=== PATIENT | female | born 1955 | race Caucasian/White ===

== ENCOUNTER 2016-10-26 11:52 | Emergency (ER) | payer BC ==
[~2016-10-26] VITALS: Wt 70.0 kg
[2016-10-26] MEDS ORDERED: SOD CHLORIDE 0.9% 500 ML IV STA (13:47)
[2016-10-26] MEDS ORDERED: CARBIDOPA/LEVODOPA (10/100) TAB PO ONE (14:00)
--- NOTE | 2016-10-26 14:29 | ERD ---
ER Documentation Chief Complaint Date/Time DATE: 10/26/16 TIME: 14:22 Chief Complaint BILATERAL LEG SWELLING HPI 61-year-old woman brought in by mutual fund sales agent for evaluation of 2 weeks of bilateral peripheral edema. This seems to be of new onset. Patient is wheelchair-bound and is in a sitting or laying position for most of the day. Initially I was told she has a history of Parkinson's disease but I later found out her "diagnosed" her with Parkinson's about 8 years ago when she developed upper extremity tremors, gait ataxia, generalized weakness. He states 3 years ago she developed difficulty speaking. Patient moved here 17 years ago from [place] and last visited there about 14 years ago. She does not see a doctor on a regular basis, and minor issues are usually managed in different emergency departments around [facility]. ROS All systems reviewed and are negative except as per history of present illness. Medications Home Meds Active Scripts Albendazole* (Albenza*) 200 Mg Tab, 400 MG PO BID, #28 TAB Prov:KIRTI ROBERSON MD 10/26/16 Allergies Allergies: Coded Allergies: No Known Allergy (Unverified , 10/26/16) PMhx/Soc Unknown History of Surgery: No Anesthesia Reaction: No Hx Neurological Disorder: No Hx Respiratory Disorders: No Hx Cardiac Disorders: No Hx Psychiatric Problems: No Hx Miscellaneous Medical Probl: Yes (PARKINSONS) Hx Alcohol Use: No Hx Substance Use: No Hx Tobacco Use: No Smoking Status: Never smoker FmHx Family History: No diabetes Physical Exam Vitals Vital Signs Date Time Temp Pulse Resp B/P Pulse Ox O2 Delivery O2 Flow Rate FiO2 10/26/16 17:40 64 20 112/68 98 Room Air 10/26/16 17:00 72 20 118/77 98 Room Air 10/26/16 16:50 69 20 121/61 98 Room Air 10/26/16 12:06 98.0 78 18 126/79 99 Physical Exam GENERAL: Well-developed, well-nourished, well-hydrated, in no apparent distress , looks nontoxic in appearance HEENT: Moist mucous membranes, pink conjunctiva, no cervical spine tenderness or step-off deformities, no goiter, no jaundice or icterus, extraocular movements intact without pain. No submandibular induration, and no pharyngeal erythema NEURO: Eyes open, patient follows commands, nonverbal, hyperreflexia in all extremities, no focal deficits or facial asymmetry, pupils equal round reactive to light, rigidity of her lower extremities bilaterally and choreoathetosis to the upper extremities bilaterally. She has severe gait ataxia. Of note I do not appreciate masklike facies, lead pipe rigidity, or shuffling gait CARDIAC: Regular rate and rhythm, no murmurs rubs or gallops LUNGS: Clear bilaterally no wheezing crackles or stridor ABDOMEN: Soft nontender, no guarding, no rigidity, no rebound, no psoas sign no obturator sign. Normoactive bowel sounds SKIN: Warm and dry to touch, no abrasions, contusions, or hematomas, no lacerations, no ecchymosis, no target lesions, and without ulcers EXTREMITIES: No clubbing cyanosis, 2+ pitting edema in the lower extremities bilaterally, calves are bilaterally symmetrical, no Homans sign, no popliteal cord sign. Distal pulses equal and bilateral PSYCH: Normal affect without agitation or irritability Result Diagram: 10/26/16 1415 10/26/16 1415 Results 24 hrs Laboratory Tests Test 10/26/16 14:15 White Blood Count 7.410^3/ul Red Blood Count 4.0910^6/ul Hemoglobin 12.2g/dl Hematocrit 37.7% Mean Corpuscular Volume 92.2fl Mean Corpuscular Hemoglobin 29.8pg Mean Corpuscular Hemoglobin Concent 32.4g/dl Red Cell Distribution Width 14.3% Platelet Count 31549^3/UL Mean Platelet Volume 9.2fl Neutrophils % 55.2% Lymphocytes % 33.4% Monocytes % 8.7% Eosinophils % 2.3% Basophils % 0.1% Nucleated Red Blood Cells % 0.0/100WBC Neutrophils # 4.110^3/ul Lymphocytes # 2.510^3/ul Monocytes # 0.610^3/ul Eosinophils # 0.210^3/ul Basophils # 0.010^3/ul Nucleated Red Blood Cells # 0.010^3/ul Sodium Level 148mmol/L Potassium Level 3.7mmol/L Chloride Level 106mmol/L Carbon Dioxide Level 28mmol/L Anion Gap 18 Blood Urea Nitrogen 13mg/dl Creatinine 0.55mg/dl Glucose Level 85mg/dl Calcium Level 8.7mg/dl Total Bilirubin 0.4mg/dl Direct Bilirubin 0.00mg/dl Indirect Bilirubin 0.4mg/dl Aspartate Amino Transf (AST/SGOT) 24IU/L Alanine Aminotransferase (ALT/SGPT) 37IU/L Alkaline Phosphatase 97IU/L Troponin I < 0.012ng/ml B-Type Natriuretic Peptide 100PG/ML Total Protein 8.1g/dl Albumin 4.1g/dl Globulin 4.00g/dl Albumin/Globulin Ratio 1.02 Lipase 59U/L Current Medications Medications (Trade) Dose Ordered Sig/Raquel Route PRN Reason Start Time Stop Time Status Last Admin Dose Admin Sodium Chloride (NS) 500 ml @ 500 mls/hr Q1H STAT IV 10/26/16 13:47 10/26/16 14:46 DC 10/26/16 14:20 Carbidopa/ Levodopa 1 tab 1 tab ONCE ONCE PO 10/26/16 14:00 10/26/16 14:01 DC 10/26/16 14:00 Sodium Chloride (NS) 1,000 ml @ 1,000 mls/hr Q1H ONCE IV 10/26/16 16:00 10/26/16 16:59 DC 10/26/16 16:44 Midazolam HCl (Versed) 2 mg ONCE ONCE IV 10/26/16 17:00 10/26/16 17:01 DC 10/26/16 16:47 Albendazole (Albenza) 400 mg ONCE ONCE PO 10/26/16 18:30 10/26/16 18:31 Procedures/MDM IV line was established patient was placed on alternative dispute resolution mediator rhythm strip revealed a sinus rhythm at about 70 bpm with upright P and T waves. Patient was afebrile. EKG performed, read by me revealed a normal sinus rhythm at 66 bpm, first- degree atrial ventricular block at 206 ms, normal axis, narrow QRS complex, no concerning ST elevations or depressions noted. Prior to CT imaging she received midazolam [address] scan of the brain was performed that was negative for acute bleed mass or shift. 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 One AP view of the chest performed, read by me reveals no acute infiltrates, normal mediastinum, sharp costophrenic and cardiac borders, no air under the diaphragm. Otherwise unremarkable chest x-ray. Color Doppler ultrasound of the bilateral lower extremities was performed, all veins were compressible, no DVT noted. CBC and electrolytes are normal, liver function tests were normal, troponin was negative, urine analysis is pending I will follow-up. I administered albendazole 400 mg p.o. for neurocysticercosis treatment. Patient's mental status is back to baseline although she has multiple concerning neurologic findings none of which are acute. 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 Furthermore, Parkinson's disease has not yet been ruled out and may still be on the differential. I recommend 2 weeks treatment with albendazole which will likely improve some of her symptoms and follow-up with outpatient mat machine tender for continued medical management, MRI, and outpatient neurology referral. Differential diagnoses considered, included but not limited to acute coronary syndrome, pulmonary embolism, aortic dissection, abdominal aortic aneurysm, sepsis, stroke, meningitis, encephalitis, pneumonia, appendicitis, cholecystitis , bowel obstruction, pyelonephritis, nephrolithiasis, cystitis, as well as metabolic, hematologic, and electrolyte abnormalities. As well as abscess, cellulitis, fractures, and dislocations. Patient feels much better at this time, and vital signs are normal, symptoms have improved. I did give strict instructions to return to the ED if symptoms continue or worsen, patient will otherwise follow-up with primary care physician. Patient understood instructions and agreed to plan. Disclaimer: Inadvertent spelling and grammatical errors are likely due to EHR/ dictation software use and do not reflect on the overall quality of patient care. Also, please note that the electronic time recorded on this note does not necessarily reflect the actual time of the patient encounter. Departure Diagnosis: Primary Impression: Neurocysticercosis Additional Impressions: Peripheral edema Dependent edema Upper motor neuron disease Choreoathetosis Condition: Stable KIRTI ROBERSON MD Oct 26, 2016 14:29
[2016-10-26 14:32] LABS: BASOPHILS % 0.1 % (0.0-2.0); EOSINOPHILS # 0.2 10^3/ul (0.0-0.5); EOSINOPHILS % 2.3 % (0.0-7.0); HEMATOCRIT 37.7 % (37.0-47.0); HEMOGLOBIN 12.2 g/dl (12.0-16.0); LYMPHOCYTES # 2.5 10^3/ul (0.8-2.9); LYMPHOCYTES % 33.4 % (15.0-51.0); MEAN CORPUSCULAR HEMOGLOBIN 29.8 pg (29.0-33.0); MEAN CORPUSCULAR HGB CONC 32.4 g/dl (32.0-37.0); MEAN CORPUSCULAR VOLUME 92.2 fl (82.0-101.0); MEAN PLATELET VOLUME 9.2 fl (7.4-10.4); MONOCYTE # 0.6 10^3/ul (0.3-0.9); MONOCYTES % 8.7 % (0.0-11.0); NEUTROPHIL # 4.1 10^3/ul (1.6-7.5); NEUTROPHILS % 55.2 % (39.0-77.0); PLATELET COUNT 241 10^3/UL (140-415); RED BLOOD COUNT 4.09 10^6/ul (4.20-5.40); RED CELL DISTRIBUTION WIDTH 14.3 % (11.5-14.5); WHITE BLOOD COUNT 7.4 10^3/ul (4.8-10.8)
--- NOTE | 2016-10-26 14:33 | RADRPT ---
PROCEDURE: Chest Radiograph. CLINICAL INDICATION: Chest and abdominal pain. TECHNIQUE: 2frontal chest radiograph. COMPARISON: None available FINDINGS: There is limited by patient positioning and motion artifact. Heart size is poorly evaluated. Lung volumes are decreased in there is left greater than right basilar atelectasis. No infiltrate or effu josefina is seen. The bones are intact. IMPRESSION: 1. Low lung volumes with left greater than right basilar atelectasis. 2. No evidence of acute cardiopulmonary disease. RPTAT: KK .Jamie Ware MD, MD Date Time Electronically viewed and signed by .Jamie Ware MD, MD on 10/26/2016 14:33 .B/
[2016-10-26 15:14] LABS: ALANINE AMINOTRANSFERASE 37 IU/L (13-69); ALBUMIN 4.1 g/dl (3.3-4.9); ALBUMIN/GLOBULIN RATIO 1.02; ALKALINE PHOSPHATASE 97 IU/L (42-121); ANION GAP 18 (8-16); ASPARTATE AMINO TRANSFERASE 24 IU/L (15-46); BILIRUBIN,INDIRECT 0.4 mg/dl (0-1.1); BILIRUBIN,TOTAL 0.4 mg/dl (0.2-1.3); BLOOD UREA NITROGEN 13 mg/dl (7-20); CALCIUM 8.7 mg/dl (8.4-10.2); CARBON DIOXIDE 28 mmol/L (21-31); CHLORIDE 106 mmol/L (97-110); CREATININE 0.55 mg/dl (0.44-1.00); GLUCOSE 85 mg/dl (70-220); POTASSIUM 3.7 mmol/L (3.5-5.1); SODIUM 148 mmol/L (135-144); TOTAL PROTEIN 8.1 g/dl (6.1-8.1)
[2016-10-26 15:24] LABS: B-TYPE NATRIURETIC PEPTIDE 100 PG/ML (0-125)
--- NOTE | 2016-10-26 15:40 | RADRPT ---
PROCEDURE: US Lower extremity venous, bilateral CLINICAL INDICATION: Bilateral lower extremity swelling, r/o dvt TECHNIQUE: Multiple sonographic images of the bilateral lower extremity deep venous system was ob tained utilizing grayscale, color-flow, compressive sonography and doppler imaging with augmentation . The images were reviewed on a PACS workstation. COMPARISON: None. FINDINGS: There is normal compressibility and flow within the bilateral common femoral, superficial femoral , posterior tibial, peroneal and popliteal veins. RPTAT: AA IMPRESSION: No sonographic evidence for deep venous thrombosis in bilateral lower extremities. Physician Shauna Date Time Electronically viewed and signed by Physician Shauna on 10/26/2016 15:39 RA/
[2016-10-26] MEDS ORDERED: SOD CHLORIDE 0.9% 1,000 ML IV ONE (16:00)
[2016-10-26 16:05] LABS: TROPONIN-I < 0.012 ng/ml (0.00-0.12)
[2016-10-26] MEDS ORDERED: MIDAZOLAM 1 MG/ML 2 ML INJ IV ONE (17:00)
--- NOTE | 2016-10-26 17:17 | RADRPT ---
PROCEDURE: CT Brain without. CLINICAL INDICATION: Altered mental status. Concern for mass. TECHNIQUE: A CT of the brain was performed on multidetector high-resolution CT scanner utilizing a xial sections from the skull base through the vertex without contrast. The scan was reviewed in sof t tissue brain and high frequency resolution bone algorithm windows. Images were reviewed on a high -resolution PACS workstation. One or more the following does reduction techniques were utilized: Aut omated exposure control, adjustment of the mA/ or kV according to patient's size, or use of iterativ e reconstruction technique. The exam CTDI = 43.32 mGy and the DLP = 847.7 mGy-cm. COMPARISON: Brain CT 05/25/2014 at [facility]. FINDINGS: The ventricles and sulci are moderately prominent indicative of volume loss. There is mild cerebella r volume loss. There is no intracranial hemorrhage, mass effect or midline shift. No abnormal intr a-axial or extra-axial fluid collections are seen. The walker/white matter differentiation is preserve d. Small scattered foci of calcification in bilateral cerebral hemisphere which may represent sequela o f prior infection such as neurocysticercosis. There are mild scattered foci of hypoattenuation in the white matter, which are nonspecific in etiol ogy but likely reflect chronic small vessel ischemic changes. There are mild intracranial vascular calcifications consistent with atherosclerosis. The visualized paranasal sinuses are essentially mata ar. IMPRESSION: 1. No acute intracranial hemorrhage, transcortical infarction or mass effect. 2. Mild intracranial atherosclerosis and chronic small vessel ischemic changes. 3. Small scattered foci of calcification in bilateral cerebral hemisphere which may represent seque la of prior infection such as neurocysticercosis. 4. Moderate generalized cerebral and mild cerebellar volume loss. RPTAT: HH .Marilin Marquis MD, MD Date Time Electronically viewed and signed by .Marilin Marquis MD, MD on 10/26/2016 17:17 .N/
[2016-10-26] MEDS ORDERED: ALBE200T PO (18:06)
[2016-10-26] MEDS ORDERED: ALBENDAZOLE 200 MG TAB PO ONE ×2 (18:30)
[2016-10-26 18:59] LABS: FREE T3 4.52 pg/ml (2.77-5.27)
[2016-10-26 19:13] LABS: THYROID STIMULATING HORMONE 0.422 MIU/L (0.465-4.680)
[2016-10-26 19:16] LABS: ADD UMIC YES; UR ASCORBIC ACID NEGATIVE (NEGATIVE); UR BILIRUBIN (Dip) NEGATIVE (NEGATIVE); UR BLOOD (Dip) 2+ mg/dL (NEGATIVE); UR CLARITY CLEAR (CLEAR); UR COLOR YELLOW (YELLOW); UR GLUCOSE (Dip) NEGATIVE (NEGATIVE); UR KETONES (Dip) NEGATIVE (NEGATIVE); UR LEUKOCYTE ESTERASE (Dip) NEGATIVE Leu/ul (NEGATIVE); UR MUCUS FEW /HPF (NONE SEEN); UR NITRITE (Dip) NEGATIVE (NEGATIVE); UR RBC 7 /HPF (0-5); UR SPECIFIC GRAVITY (Dip) 1.011 (1.003-1.030); UR TOTAL PROTEIN (Dip) NEGATIVE (NEGATIVE); UR UROBILINOGEN (Dip) NEGATIVE (NEGATIVE)
[2016-10-26 19:28] VITALS: BP 122/78; PULSE 82; RESP 20; TEMP 98
== END 2016-10-26 19:33 | disposition home or self-care (01) ==
LOC: E/R 11:52
DX: B69.0 Cysticercosis of central nervous system (principal); R60.0 Localized edema; G12.20 Motor neuron disease, unspecified; G25.5 Other chorea; G20 Parkinson's disease; R40.2142 Coma scale, eyes open, spontaneous, at arrival to emergency department; R40.2252 Coma scale, best verbal response, oriented, at arrival to emergency department; R40.2362 Coma scale, best motor response, obeys commands, at arrival to emergency department
CPT/HCPCS: 36415; 70450; 71010; 80053; 81001; 83690; 83880; 84439; 84443; 84481; 84484; 85025; 93970; 96374; 99285; J2250; J7030; J7040; 93005

== ENCOUNTER 2017-10-05 12:54 | Inpatient (IN) | END 2017-10-17 15:05 | disposition home health service (06) | DRG 64 ==

== ENCOUNTER 2017-10-17 20:59 | Emergency (ER) | END 2017-10-18 11:26 | disposition home or self-care (01) ==

== ENCOUNTER 2017-11-22 09:56 | Day surgery (SDC) | END 2017-11-22 15:35 | disposition home or self-care (01) ==